=== PATIENT | female | born 1955 | race Caucasian/White ===

== ENCOUNTER 2023-11-20 11:04 | Outpatient (CLI) | payer MEDICARE, SELFPAY | END 2023-11-20 11:05 | disposition home or self-care (01) | LOC: ANHBWCAUD 11:04 | PROVIDERS: PCP Family Medicine; Visit Provider Family Medicine | DX: H93.13 Tinnitus, bilateral (principal); H90.3 Sensorineural hearing loss, bilateral | CPT/HCPCS: 92557; 92567 ==